=== PATIENT | male | born 1985 | race Two or more races ===

== ENCOUNTER 2022-07-12 10:49 | Emergency (ER) | payer SELFPAY ==
--- NOTE | 2022-07-12 12:08 | PC.NURSE ---
pt brought in by ISP pt had a DUI kit drawn officer Daily at bedside and with pt to provide urine sample KIT drawn and sent with Officer
--- NOTE | 2022-07-12 12:11 | PC.NURSE ---
1104 consent obtained for DUI KIT to be drawn
== END 2022-07-12 12:00 | disposition left against medical advice (07) ==
PROVIDERS: Emergency Provider Internal Medicine Critical Care Medicine
DX: Z01.89 Encounter for other specified special examinations (principal)
CPT/HCPCS: 99199